=== PATIENT | male | born 1985 | race African-American/Black ===

== ENCOUNTER 2017-03-26 18:16 | Emergency (ER) | payer MEDICAID, OTHER ==
[~2017-03-26] VITALS: Ht 170.2 cm; Wt 65.0 kg
[2017-03-26] MEDS ORDERED: BACITRACIN ZINC OINT UDPKT TOP ONE (20:15)
[2017-03-26] MEDS ORDERED: LIDOCAINE HCL 1% 20ML VIAL (Pyxis) INJ MC ONE (20:15)
[2017-03-26] MEDS ORDERED: TETANUS, DIPHTHERIA, PERTUSSIS VAC/PF 0.5ML (>7YR OLD) IM ONE (20:15)
[2017-03-26 21:09] VITALS: BP 109/73
== END 2017-03-26 22:38 | disposition left against medical advice (07) ==
LOC: ER 18:33
DX: S61.512A Laceration without foreign body of left wrist, initial encounter (principal); W25.XXXA Contact with sharp glass, initial encounter; Y93.89 Activity, other specified; Y99.0 Civilian activity done for income or pay; Y92.69 Other specified industrial and construction area as the place of occurrence of the external cause; Z23 Encounter for immunization
CPT/HCPCS: 73100; 90471; 90715; 99284; J3490; Z7610